=== PATIENT | male | born 1990 | race Caucasian/White ===

== ENCOUNTER 2024-06-01 10:44 | Observation (INO) | payer OTHER, SELFPAY ==
[2024-06-01] VITALS (15 sets, daily range): BP systolic 109–129; BP diastolic 71–88; PULSE 78–90; RESP 14–18; TEMP 36.1–37.7; O2SAT 92–100; BMI 32.1
[2024-06-01 11:14] LABS: Absolute Lymphocyte Count 1.73 X10^3/uL (0.83-4.51); Absolute Neutrophil Count 5.2 X10^3/uL (2.0-7.7); Basophil# 0.03 X10^3/uL; Basophil% 0.4 % (0-1); Eosinophil# 0.06 X10^3/uL; Eosinophils% 0.8 % (0-5); Hemoglobin 15.5 g/dL (13.0-16.5); Lymphocyte # 1.73 X10^3/ul (0.83-4.51); Lymphocyte % 22.6 % (19-41); Mean Corp Hgb Conc 34.4 g/dL (32-36); Mean Corpuscular Hgb 28.8 pg (27.0-32.0); Mean Corpuscular Volume 83.6 fL (80-94); Mean Platelet Vol. 9.4 fl (6.2-12.0); Monocyte# 0.59 X10^3/uL; Monocyte% 7.7 % (0-10); NRBC Flagged by Analyzer 0 % (0-5); Neutrophil # 5.22 X10^3/uL (2.7-7.7); Neutrophil % 68.2 % (47-70); Platelet Count 244 K/mm3 (150-450); RBC Distribution Width CV 11.9 % (11.6-14.6); RBC Distribution Width SD 35.6 fl (35.1-43.9); Red Blood Count 5.38 M/mm3 (4.6-6.2); White Blood Count 7.7 K/mm3 (4.4-11.0)
[2024-06-01 11:35] LABS: AST(SGOT) 15 U/L (15-37); Alanine Aminotransfer ALT/SGPT 26 U/L (16-61); Albumin, Serum 3.8 g/dL (3.2-5.0); Alkaline Phosphatase 62 U/L (45-117); Anion Gap 7 (5-15); BUN 12 mg/dL (7-18); BUN/Creat Ratio 14.7 RATIO (10-20); Calcium,Total 9.2 mg/dL (8.5-10.1); Chloride 107 mmol/L (98-107); Creatinine, Serum 0.81 mg/dL (0.70-1.30); EST Glomerular Filtration Rate 116 mL/min (>60); Est Glom Filt Rate - Afr Amer 141 mL/min (>60); Estimated Creatinine Clearance 170.73 ml/min; Globulin 3.7 g/dL (2.2-4.2); Glucose 95 mg/dL (74-106); Lipase 16 U/L (13-75); Potassium 3.8 mmol/L (3.5-5.1); Protein, Total 7.5 g/dL (6.4-8.2); Sodium Level 139 mmol/L (136-145)
--- NOTE | 2024-06-01 11:39 | EDS_ITS ---
HPI History of Present Illness Chief Complaint: Abd Pain Narrative Narrative: Patient is a 34-year-old male with no known significant past medical history who presents to the emergency department with chief complaint of abdominal pain. Patient states that he has had abdominal pain for about 2 days and states that it is no right lower portion of his abdomen. He states that when he is laying down resting his pain is very minimal however when he gets up and ambulates he has significant pain. He denies any fevers or chills. Denies contacts. Denies any previous abdominal surgeries. PFSH PFS Home Medications ?Medication ?Instructions ?Recorded ?Last Taken ?Type NK 06/01/24 Unknown History Allergy/AdvReac Type Severity Reaction Status Date / Time No Known Allergies Allergy Verified 06/01/24 10:47 Social History Smoking Status: Current every day smoker tobacco type: e-cigarettes ROS ROS ED ROS Narrative Constitutional: Patient denies any fevers, chills, headaches Abdomen: Complains of abdominal pain as noted above as well as some nausea denies vomiting or diarrhea : Denies any painful urination, hematuria, polyuria, testicular pain, urethral discharge Neurological: Denies numbness, weakness, tingling Musculoskeletal: Denies back pain Skin: Denies rashes or lesions EXAM Physical Exam Narrative Exam Narrative: General: Patient lying in bed resting comfortably did not appear to be in acute distress Head: Atraumatic, normocephalic Eyes: PERRL bilateral, EOMI bilateral, no conjunctival injection noted Neck: Soft, supple, trachea midline Cardiovascular: Regular rate and rhythm no murmurs gallops rubs noted Respiratory: Clear to auscultation bilaterally Abdomen: Soft, nondistended, tenderness palpation of the right lower quadrant no rebound or guarding on exam Extremities: +5/5 strength noted in the bilateral upper and lower extremities Neurological: Patient follow commands knew that he was at [facility] there is 24 Skin: Warm, dry, intact Const Vital Signs: 06/01/24 10:45 06/01/24 12:44 06/01/24 13:17 Temperature 97.2 F L 99.3 F H Temperature Source Temporal Pulse Rate 81 78 87 Respiratory Rate 16 14 14 Blood Pressure 129/83 H 128/88 H 128/88 H Blood Pressure Mean 98 101 101 Pulse Ox 100 98 99 Oxygen Delivery Method Room Air MDM MDM MDM Narrative Medical decision making narrative: Patient is a 34-year-old male who presented to the emergency department with a chief complaint of abdominal pain. Patient will have a workup performed here on the differential diagnose includes but not limited to appendicitis, cholecystitis, pancreatitis, viral gastroenteritis. Once workup is obtained reviewed he will be reevaluated. Patient states that he does not need pain medication at this point time. Patient CBC reviewed and was largely unremarkable no evidence leukocytosis white blood count normal 7.7, hemoglobin stable 15.5, platelet count normal at 244. Patient sodium normal at 139, potassium normal 3.8, creatinine normal at 0.81. Patient's total bilirubin was elevated 2.70 however AST and ALT were normal at 1526 respectively. Patient lipase normal at 16. Patient CT abdomen pelvis with IV contrast showed acute appendicitis. Called and discussed case with Dr. Haro from who will accept the patient for admission. Patient was notified with the results and the plan is agreeable with this. Patient will given Zosyn. All question concerns answered at bedside. Lab Data Labs: Laboratory Results - last 24 hr 06/01/24 11:05 WBC 7.7 RBC 5.38 Hgb 15.5 Hct 45.0 MCV 83.6 MCH 28.8 MCHC 34.4 RDW Std Deviation 35.6 RDW Coeff of Michael 11.9 Plt Count 244 MPV 9.4 Immature Gran % (Auto) 0.300 Neut % (Auto) 68.2 Lymph % (Auto) 22.6 [place] % (Auto) 7.7 Eos % (Auto) 0.8 Baso % (Auto) 0.4 Absolute Neuts (auto) 5.2 Absolute Lymphs (auto) 1.73 Nucleated RBC % 0 Sodium 139 Potassium 3.8 Chloride 107 Carbon Dioxide 25.0 Anion Gap 7 BUN 12 Creatinine 0.81 Estim Creat Clear Calc 170.73 Est GFR (MDRD) Af Amer 141 Est GFR (MDRD) Non-Af 116 BUN/Creatinine Ratio 14.7 Glucose 95 Calcium 9.2 Total Bilirubin 2.70 H AST 15 ALT 26 Alkaline Phosphatase 62 Total Protein 7.5 Albumin 3.8 Globulin 3.7 Albumin/Globulin Ratio 1.0 Lipase 16 Radiography Diagnostic Testing: Clinical Impression(s) from Imaging Studies Abdomen/Pelvis CT 06/01/24 11:55 IMPRESSION: Findings intraoperative for acute appendicitis. Electronically Signed: Jake Chavez MD at 12:44 EDT , Discharge Plan Triage Chief Complaint: Abd Pain ED Provider: Mitesh Simeon Dx/Rx/DC Orders Clinical Impression: Acute appendicitis Primary Care Provider: Vasu Villanueva
--- NOTE | 2024-06-01 11:55 | CT_ITS ---
STUDY: CT ABDOMEN AND PELVIS WITH CONTRAST REASON FOR EXAM: Male, 34 years old. RLQ abd pain RADIATION DOSAGE (If Supplied By Facility): CTDIvol = ( 13.63 ) mGy, DLP = ( 1191.07 ) mGycm TECHNIQUE: Transaxial images were obtained from the dome of the diaphragm to the symphysis pubis without oral contrast. IV 100mL Isovue-300 was administered. Sagittal and coronal images were reconstructed. Individualized dose optimization techniques were used for this CT. COMPARISON: None. FINDINGS: The visualized lung bases are unremarkable. The visualized portions of the heart are within normal limits. Normal liver. Normal gallbladder and extrahepatic biliary system. Normal spleen. Normal pancreas. Normal bilateral adrenal glands. Normal right kidney. Normal left kidney. Normal visualized stomach. Normal small intestine. Normal colon. There is a tubular, thick-walled appendix (>7mm), consistent with acute appendicitis. Normal abdominal aorta. Normal inferior vena cava. Normal retroperitoneum. Normal urinary bladder. There is a small umbilical hernia containing fat. Normal osseous structures. CT/Abdomen/Pelvis W IV Cont ONLY IMPRESSION: Findings intraoperative for acute appendicitis. Electronically Signed: Jake Chavez MD at 12:44 EDT ,
--- NOTE | 2024-06-01 13:05 | PCM.HP.STD ---
HPI - General General Date of Admission: 06/01/24 HPI Narrative MADHURI HAYDEN, is a 34 M who presents to the ER due to right lower quadrant pain. Patient states he had he has had pain for about 2 days but did get consistently worse last night. Patient states he had some nausea denies any vomiting. Patient's only abdominal surgery is inguinal hernia surgery at 4 years old unsure of side and he had his wisdom teeth removed. Patient CT abdomen pelvis did show acute appendicitis. White blood count within normal limits. Patient did get Zosyn IV 3.375 g IV in the ER. PFSH Home Medications ?Medication ?Instructions ?Recorded ?Last Taken ?Type NK 06/01/24 Unknown History Allergy/AdvReac Type Severity Reaction Status Date / Time No Known Allergies Allergy Verified 06/01/24 10:47 Social History Smoking Status: Current every day smoker tobacco type: e-cigarettes Vital Signs Vital Signs Vital Signs: 06/01/24 10:45 06/01/24 12:44 Temperature 97.2 F L Temperature Source Temporal Pulse Rate 81 78 Respiratory Rate 16 14 Blood Pressure 129/83 H 128/88 H Blood Pressure Mean 98 101 Pulse Ox 100 98 Oxygen Delivery Method Room Air Weight Weight: 243 lb 14.4 oz Body Mass Index (BMI) 32.1 Physical Exam Const alert, oriented x3 and no apparent distress HEENT normocephalic and head/scalp atraumatic Resp normal respiratory effort Cardio regular rate GI soft to palpation; Negative for non-distended Palpation: tender RLQ; Negative for guarding Extremity no clubbing, cyanosis or edema Neuro CN's II-XII intact bilaterally Psych mental status grossly normal Results Lab / Micro Data 06/01/24 11:05 06/01/24 11:05 Labs: Laboratory Results - last 24 hr 06/01/24 11:05: WBC 7.7, RBC 5.38, Hgb 15.5, Hct 45.0, MCV 83.6, MCH 28.8, MCHC 34.4, RDW Std Deviation 35.6, RDW Coeff of Michael 11.9, Plt Count 244, MPV 9.4, Immature Gran % (Auto) 0.300, Neut % (Auto) 68.2, Lymph % (Auto) 22.6, Ellis % (Auto) 7.7, Eos % (Auto) 0.8, Baso % (Auto) 0.4, Absolute Neuts (auto) 5.2, Absolute Lymphs (auto) 1.73, Nucleated RBC % 0, Sodium 139, Potassium 3.8, Chloride 107, Carbon Dioxide 25.0, Anion Gap 7, BUN 12, Creatinine 0.81, Estim Creat Clear Calc 170.73, Est GFR (MDRD) Af Amer 141, Est GFR (MDRD) Non-Af 116, BUN/Creatinine Ratio 14.7, Glucose 95, Calcium 9.2, Total Bilirubin 2.70 H, AST 15, ALT 26, Alkaline Phosphatase 62, Total Protein 7.5, Albumin 3.8, Globulin 3.7, Albumin/Globulin Ratio 1.0, Lipase 16 Imaging Radiology Impression Abdomen/Pelvis CT 06/01/24 11:55 IMPRESSION: Findings intraoperative for acute appendicitis. Electronically Signed: Jake Chavez MD at 12:44 EDT Reading Location ID and State: [facility] / [place] , Service support , Assessment & Plan Assessment/Plan (1) Acute appendicitis: PLAN: Plan 1. Discussed procedure laparoscopic appendectomy, possible open along with the risk but not limited to bleeding, infection/abscess, injury to another organ (small bowel, colon, etc.), adhesion, hernia at incision sites, and anesthesia. Patient had no further questions at this time Aileen Haro M.D. Pager: [phone] [facility] [address] [place] [address], [address] [place] [id number] Office: [phone]
--- NOTE | 2024-06-01 13:11 | NURSING ---
SURGERY THEN MED SURG [facility] ACUTE APPENDICITIS
[2024-06-01] MEDS: Piperacil/Tazobactam 3.375 GM in 0.9% Normal Saline (50mL MB+) 50 ML IV (13:14)
--- NOTE | 2024-06-01 13:28 | ED.RN ---
GAVE TO REPORT TO LAVERNE SHERWOOD IN [facility]
[2024-06-01] MEDS: 0.9% Normal Saline (1000mL) 1,000 ML 15 ML IV (13:40)
--- NOTE | 2024-06-01 14:25 | PCM.PRE.AN2 ---
ASA Classification* ASA Classification ASA Classification: 2 and E Assessment & Plan Anesthesia* Anesthesia Assessment Anesthesia Assessment: Discussed sedation and/or anesthesia options, risks, benefits, and alternatives with patient/parents/legal guardian/POA. Questions invited. The patient/parents/legal guardian/POA seems to understand and agrees to proceed with anesthesia plan. Reviewed the physical assessment, medical history, allergy history and patient home medications list prior to surgery/procedure/anesthetic and documented any changes. Performed airway and anesthesia risk assessments. Anesthesia Type Anesthesia Type: General (see written pre anesthesia record for full assessment) Anesthesia Focused Assessment* Temperature: 99.9 F Pulse Rate: 87 Blood Pressure: 125/87 Respiratory Rate: 14 Pulse Ox: 99 Airway Assessment Mouth opens: >3 cm Mallampati Score: II Focused Labs Anesthesia Preop lab: CBC WBC 7.7 K/mm3 (4.4-11.0) 06/01/24 11:05 RBC 5.38 M/mm3 (4.6-6.2) 06/01/24 11:05 Hgb 15.5 g/dL (13.0-16.5) 06/01/24 11:05 Hct 45.0 % (40-54) 06/01/24 11:05 Plt Count 244 K/mm3 (150-450) 06/01/24 11:05 CHEMISTRY Potassium 3.8 mmol/L (3.5-5.1) 06/01/24 11:05 Sodium 139 mmol/L (136-145) 06/01/24 11:05 BUN 12 mg/dL (7-18) 06/01/24 11:05 Creatinine 0.81 mg/dL (0.70-1.30) 06/01/24 11:05 Glucose 95 mg/dL (74-106) 06/01/24 11:05 COAG Pre-Assessment Diagnosis/Proposed Procedure Planned Operative Procedure(s): lap appy Anesthesia History 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 When Was Last Pacemaker Check QUESTION #4 FULL TEXT: You/Your Family Experience fever (hyperthermia) with Anesthesia Last Oral Intake Last Oral intake: Last Oral Intake NPO since 07:00 06/01/24 13:18 Meds taken in AM with sips of water? Meds patient instructed to take am of surgery PONV PONV - retail gift card merchandising: PONV - retail gift card merchandising Female HX of Motion Sickness HX of N/V After Surgery Non-Smoker Duration of Surgery greater than 60 minutes Number of Risk Factors PONV Score Height & Weight Height & Weight: Anesthesia: Height & Weight Height 6 ft 1 in 06/01/24 13:18 Weight: 110.631 kg 06/01/24 13:18 Body Mass Index (BMI) 32.1 06/01/24 13:18 Respiratory Assessment Respiratory Assessment - retail gift card merchandising: Respiratory Tract Infection Hx - retail gift card merchandising Hx Respiratory Tract Infection STOP Sleep Apnea STOP Sleep Apnea - retail gift card merchandising: STOP Sleep Apnea - retail gift card merchandising Hx Hypertension No 06/01/24 13:18 Hx Sleep Apnea No 06/01/24 13:18 CPAP BIPAP Do you snore loudly (louder No 06/01/24 13:18 than talking or can be heard Do you often feel tired/ No 06/01/24 13:18 fatigued/ sleepy during daytime? Has anyone observed you stop No 06/01/24 13:18 breathing during sleep? STOP Results Negative 06/01/24 13:18 QUESTION #5 FULL TEXT : Do you snore loudly (louder than talking or can be heard through closed doors)? Tobacco Use History Tobacco Use History - retail gift card merchandising: Tobacco Use History - retail gift card merchandising Tobacco Use Smoking Status Current every day smoker 06/01/24 10:54 Hx Tobacco Use Years Smoking Packs Smoked per Day Smoking Cessation Date was within the last 15 years Hx Smoking Cessation Date Hx Smoking Cessation Counseling Hematologic Medial History Hematologic Hx - retail gift card merchandising: Hematologic Medical Hx - skate boarder Hx of Blood Transfusion Hx of Transfusion in last 3 Months Date of Last Transfusion (if within last 3 months) Ever experience any problems with transfusion(s)? Specify any problems Hx of Preganancy in last 3 Months Nurse Filling Out Transfusion & Questions: Date: Time: Patient unable to answer at this time (ie. confused, unrespo /Reproduction History /Reproductive History - retail gift card merchandising: /Reproductive Hx- retail gift card merchandising Hx Now Gestational Age (in weeks): EDC: Hx Hx Para Hx Section SAB Active Medications Active Medications: Current Medications Generic Name Dose Route Start Last Admin Trade Name Freq PRN Reason Stop Dose Admin Sodium Chloride 1,000 mls @ 15 mls/hr 06/01/24 13:40 IV 06/07/24 02:59 .Q48H [facility] Protocol PFSH Home Medications ?Medication ?Instructions ?Recorded ?Last Taken ?Type NK 06/01/24 Unknown History Allergy/AdvReac Type Severity Reaction Status Date / Time No Known Allergies Allergy Verified 06/01/24 10:47 Social History Smoking Status: Current every day smoker tobacco type: e-cigarettes Review of Systems (Anesthesia) ROS Narrative System reviewed and no additional complaints, except as documented.
--- NOTE | 2024-06-01 15:00 | APP_PTH ---
PATIENT: MADHURI HAYDEN LOC: MS3 U#:[id number] AGE/SX: 34/M ROOM: [facility] [place]06/01/[address]: Dr. Aileen Haro MD : 1990 BED: 1 DIS: 06/01/2024 SPEC #: [id number] RECD: 06/01/24 17:52 STATUS: KEON REQ #: [id number] [place]: 06/01/24 15:[address]: Aileen Haro DEPT: SURGICAL PATHOLOGY RECD BY: Jennifer Garza ENTERED: 06/02/24 10:24 SP TYPE: APPENDIX OTHR DR: Dr. Vasu Villanueva MD Tissues: Appendix, NOS Procedures: Surgery Specimen Level III HEADER OPERATION: Laparoscopic appendectomy PRE-OP DIAGNOSIS: Acute appendicitis TISSUE SUBMITTED: Appendix MICROSCOPIC DIAGNOSIS Appendix, appendectomy: Acute appendicitis and periappendicitis. 06/05/2024 MICROSCOPIC DESCRIPTION Slides are reviewed. GROSS DESCRIPTION Received in fixative is one container labeled with the patient's name and designated appendix. The specimen consists of an appendix measuring 4.5 x 1.0 x 0.8 cm and surrounded by yellow fatty tissue. No gross perforations are evident. Serial sections reveal a patent lumen. No mass lesion is identified. Log Loader sections are submitted in one cassette. / AM:mr 06/05/2024 TC:2 CPT: 53413
[2024-06-01] MEDS: Bupiv/Epi 0.25% 30 ML Vial (15:54)
--- NOTE | 2024-06-01 16:00 | OP.PCM_ITS ---
Report of Operation Date of Procedure: 06/01/24 Pre-Operative Diagnosis: Acute appendicitis Post-Operative Diagnosis: Same Surgery/Procedure Performed:: Laparoscopic appendectomy Surgeon: Aileen Haro yard brakeman: Braulio Mina Type of Anesthesia: General/Supplemental Anesthesiologist: Saqib Frias Special Medications: Zosyn 3.375 g IV x 1 given in the ER for acute appendicitis Specimen's removed: Appendix Estimated Blood Loss (mL): < 10 cc Description of Procedure: Indications: 34-year-old male presented to the ER with new right lower quadrant pain over the last 2 days more consistent and worsened starting last night. On workup he was found to have acute appendicitis on CT and white blood count within normal limits. Patient was started on antibiotics in the ER for acute appendicitis-Zosyn 3.375 g IV x 1 Description of the procedure: The patient was placed on operating table in supine position. General anesthesia was induced. A timeout was completed verifying correct patient, procedure, position and special equipment prior to beginning procedure. Abdomen was prepped and draped in usual sterile fashion. Incision was made in the natural skin line above the umbilicus with a 15 blade scalpel. The fascia was elevated and incised. Entry into the peritoneum was confirmed visually and no bowel was noted in the vicinity of the incision. The Fam trocar was placed under direct vision. Abdomen insufflated with a pressure of 12-15 mmHg. Patient tolerated insertion well. The scope was inserted and the abdomen inspected. No injuries from initial trocar placement were noted. Minimal amount of fluid was seen in the right lower quadrant. An direct visualization 2 -5 mm trocars were placed one above the symphysis pubis and below the hairline and one in the left lower quadrant lateral to the rectus muscle. Care is taken to avoid injury to the bladder and inferior epigastric vessels. The table was placed in Trendelenburg position with the right side elevated. The appendix was grasped with atraumatic grasper and elevated. It was noted to be inflamed. A window was developed in the mesoappendix at the point between the base of the appendix and the cecum. An endoscopic 45 mm linear cutting stapler blue load was then used to divide and staple the base of the appendix. Enseal was used to divide the mesoappendix. The appendix was withdrawn into the Fam trocar after being placed endoscopically retrieval bag. Appendix was sent to pathology. The appendiceal stump was then irrigated and hemostasis was assured. Fluid was suctioned no other pathology was identified. Secondary trochars were removed under direct visualization. No bleeding was noted trocar sites. The laparoscope withdrawn and the umbilical trocar removed. The abdomen was allowed to collapse. Local anesthesia of 30 mL of 0.25% Marcaine with epi was used at the incision sites. The umbilical trocar site was closed with the [id number] 0 Vicryl suture. The skin was closed using sutures of 4-0 Monocryl and Steri-Strips. IRB COMPLIANCE COORDINATOR assisted in closure. The patient was extubated. The patient tolerated the procedure well and was taken to the postanesthesia care unit in satisfactory condition. Complications none
--- NOTE | 2024-06-01 16:02 | DCINST_ITS ---
Discharge Instructions Diet Discharge Diet: Light diet - advance as tolerated Activity Discharge Activity: May Not Drive (while taking narcotic pain medications.) May shower in (days): 1 Lifting Restrictions: no lifting >20 lbs x 2 wks, no strenuous exercise for 4 wks Dressing / Incision Call your doctor if your incision/area has: Continuous Slow Oozing, Sudden Increased Bleeding, Increased Pain/ Swelling, Increased Redness, Foul Smelling Discharge and Swelling at the incision site Call your doctor if you observe: Fever of 101 or Higher Remove Dressing in: 2 days Cleanse incision/area with: Soap & Water Additional Dressing/Incision Instructions:: Steri-Strips will fall off in 7 to 10 days, if they do not fall off okay to remove after 10 days. Follow Up Care Please Follow Up With: Aileen Haro MD When: Call the office for a follow-up appointment 2 weeks; after 5 PM and on the weekends call [phone] with any concerns. Test Results: Test results from this visit will be discussed in further detail at your follow- up appointment, if applicable. Discharge Plan Admission Admit Date/Time: 06/01/24 13:17 Attending Provider: Aileen Haro Primary Care Provider: Vasu Villanueva Instructions Additional Instructions / Restrictions: Okay to take ibuprofen 400-600 mg PO q6hr PRN along with the oxycodone. Okay to take Tylenol with oxycodone Take all pain meds with food. Oxycodone can cause constipation recommend taking daily stool softener (i.e. Colace/docusate) while taking the pain meds. Recommend starting some MiraLAX in 1 to 2 days if no bowel movement. If still no bowel movement the following day recommend taking magnesium citrate half the bottle and waiting 4-6 hours if still no results take the other half the bottle. Discharge Orders/Prescriptions Prescriptions: New oxycodone 5 mg capsule 5 mg PO Q6H PRN (Reason: pain) 3 Days Qty: 10 0RF Referrals / Follow Up: Vasu Villanueva MD [Primary Care Provider] - Disposition Disposition (needs filled in before D/C Order can be placed): Home, Self Care
--- NOTE | 2024-06-01 16:14 | PCM.POST.ANE ---
Anesthesia: Postop Eval I Current Vital Signs Temperature: 97.6 F Pulse Rate: 90 Blood Pressure: 109/75 Respiratory Rate: 18 Pulse Ox: 95 Assessment Airway patent: Yes Spontaneous unlabored respirations: Yes nausea: No Vomiting: No Anesthesia Complication: No Fluid Hydration Crystalloid volume administer (ml): 1,000 Total IV fluid infused: 1,000 Progress Note Anesthesia document: Postop Eval 1 completed: Yes
--- NOTE | 2024-06-01 16:40 | POSTOPAN2_ITS ---
Anesthesia Postop Eval I Sum Postop Eval Completion status Anesthesia document: Postop Eval 1 completed: Yes Anesthesia Postop Eval I Summary Anesthesia Postop Eval I Summary: Anesthesia Postop Eval I: Assessment Summary Airway patent Yes 06/01/24 16:14 MASTER MERCHANDISER.CSIR Spontaneous unlabored Yes 06/01/24 16:14 MASTER MERCHANDISER.CSIR respirations Mental status nausea No 06/01/24 16:14 MASTER MERCHANDISER.CSIR Vomiting No 06/01/24 16:14 MASTER MERCHANDISER.CSIR Anesthesia Postop Eval I: Fluid Summary Crystalloid volume administer 1,000 06/01/24 16:14 MASTER MERCHANDISER.CSIR (ml) Colloids volume administered ( ml) Blood Product volume administered (ml) Total IV fluid infused 1,000 06/01/24 16:14 MASTER MERCHANDISER.CSIR Anesthesia Postop Eval I: Summary Notes Anesthesia Complication No 06/01/24 16:14 MASTER MERCHANDISER.CSIR Anesthesia Complication Comment: Post-operative progress note Anesthesia: Postop Eval II Evaluation Mental status: Awake Pain Level: 2 nausea: No Vomiting: No
--- NOTE | 2024-06-01 16:40 | PCM.POSTANE2 ---
Anesthesia Postop Eval I Sum Postop Eval Completion status Anesthesia document: Postop Eval 1 completed: Yes Anesthesia Postop Eval I Summary Anesthesia Postop Eval I Summary: Anesthesia Postop Eval I: Assessment Summary Airway patent Yes 06/01/24 16:14 ROUGH AND TRUEING MACHINE OPERATOR.CSIR Spontaneous unlabored Yes 06/01/24 16:14 ROUGH AND TRUEING MACHINE OPERATOR.CSIR respirations Mental status nausea No 06/01/24 16:14 ROUGH AND TRUEING MACHINE OPERATOR.CSIR Vomiting No 06/01/24 16:14 ROUGH AND TRUEING MACHINE OPERATOR.CSIR Anesthesia Postop Eval I: Fluid Summary Crystalloid volume administer 1,000 06/01/24 16:14 ROUGH AND TRUEING MACHINE OPERATOR.CSIR (ml) Colloids volume administered ( ml) Blood Product volume administered (ml) Total IV fluid infused 1,000 06/01/24 16:14 ROUGH AND TRUEING MACHINE OPERATOR.CSIR Anesthesia Postop Eval I: Summary Notes Anesthesia Complication No 06/01/24 16:14 ROUGH AND TRUEING MACHINE OPERATOR.CSIR Anesthesia Complication Comment: Post-operative progress note Anesthesia: Postop Eval II Evaluation Mental status: Awake Pain Level: 2 nausea: No Vomiting: No
[2024-06-01] MEDS: 0.9% Saline Lock 10 ML Syringe IV (18:25)
== END 2024-06-01 20:00 | disposition home or self-care (01) ==
LOC: ED 13:16 → MS3 16:04
PROVIDERS: Admitting Provider Surgery; Emergency Provider Emergency Medicine; PCP Family Medicine; Visit Provider Surgery
PROC: 0DTJ4ZZ Resection of Appendix, Percutaneous Endoscopic Approach (ICD-10-PCS; CPT 44970; principal; 2024-06-01 14:40)
DX: K35.80 Unspecified acute appendicitis (principal); F17.290 Nicotine dependence, other tobacco product, uncomplicated
CPT/HCPCS: 44970; 74177; 80053; 83690; 85025; 88304; 96365; 99284; J7030; Q9967; A4216; C1760; J2405